=== PATIENT | male | born 1985 | race Caucasian/White ===

== ENCOUNTER 2021-08-26 10:00 | Emergency (ER) | payer OTHER ==
[2021-08-26] MEDS ORDERED: PREDNISONE 20MG20 MG PO (11:06)
== END 2021-08-26 11:15 | disposition home or self-care (01) ==
LOC: FER 10:00
DX: T78.3XXA Angioneurotic edema, initial encounter (principal); Z88.5 Allergy status to narcotic agent; Z88.1 Allergy status to other antibiotic agents
CPT/HCPCS: 99283; J2930

== ENCOUNTER → 2022-03-03 | Day surgery (SDC) | payer OTHER ==
[~2022-03-03] VITALS: Ht 182.9 cm; Wt 112.5 kg
[~2022-03-03] MED LIST: BUSPAR5 MG PO; PREDNISONE 20MG20 MG PO; ZYRTEC10 M3 PO
== END | disposition home or self-care (01) ==
LOC: FAS 09:23
DX: K92.1 Melena (principal); K52.89 Other specified noninfective gastroenteritis and colitis; D12.0 Benign neoplasm of cecum; K60.2 Anal fissure, unspecified; Z88.6 Allergy status to analgesic agent; Z87.891 Personal history of nicotine dependence
CPT/HCPCS: 93005; J2250; J2704; J7120